=== PATIENT | male | born 1960 ===

== ENCOUNTER 2018-12-19 04:29 | Outpatient (CLI) | payer BC | END 2018-12-19 23:59 | disposition home or self-care (01) | LOC: DIABETIC 04:29 | PROVIDERS: ATTEND Specialist | DX: E11.65 Type 2 diabetes mellitus with hyperglycemia (principal); Z79.899 Other long term (current) drug therapy | CPT/HCPCS: G0108 ==

== ENCOUNTER 2019-03-28 01:57 | Outpatient (CLI) | payer BC | END 2019-03-28 23:59 | disposition home or self-care (01) | LOC: DIABETIC 01:57 | PROVIDERS: ATTEND Specialist | DX: E11.65 Type 2 diabetes mellitus with hyperglycemia (principal); Z79.82 Long term (current) use of aspirin; Z79.899 Other long term (current) drug therapy | CPT/HCPCS: G0108 ==